=== PATIENT | female | born 1995 | race Two or more races ===

== ENCOUNTER 2020-03-31 11:40 | Emergency (ER) | payer OTHER ==
[~2020-03-31] VITALS: Ht 154.9 cm; Wt 52.3 kg
[2020-03-31 11:42] VITALS: BP 115/73
== END 2020-03-31 13:31 | disposition home or self-care (01) ==
LOC: EMS 11:45
DX: Z02.89 Encounter for other administrative examinations (principal)
CPT/HCPCS: 71045-TC